=== PATIENT | female | born 1975 | race Caucasian/White ===

== ENCOUNTER 2016-09-17 02:09 | Emergency (ER) | payer OTHER ==
--- NOTE | 2016-09-17 03:26 | RADIOLOGY REPORT ---
XR CHEST RADIOGRAPH 2 views - PA and lateral CLINICAL INFORMATION: Lower back pain, syncope. COMPARISON: None. FINDINGS: Lungs are well inflated. There is no consolidation, pneumothorax, or displaced fracture. Co stophrenic angles are clear. Cardiomediastinal silhouette is normal in size. IMPRESSION: No radiographic evidence of acute cardiopulmonary abnormalities. Final Electronic Signature: This report was electronically signed by Adarsh Upton MD on 7 3:24 AM. [email or web address] /
[2016-09-17 03:38] LABS: A/G RATIO 1.2; ALBUMIN 4.1 g/dL (3.5-5.0); ALKALINE PHOSPHATASE 75 U/L (38-126); ALT 34 U/L (9-52); AST 26 U/L (14-36); BILIRUBIN, TOTAL 0.7 mg/dL (0.2-1.3); BLOOD UREA NITROGEN 11 mg/dL (7-17); CALCIUM 8.9 mg/dL (8.4-10.2); CHLORIDE 103 mmol/L (98-107); CREATININE 0.6 mg/dL (0.5-1.0); EST GLOMERULAR FILTRATION RATE > 60 mL/min; GLUCOSE 90 mg/dL (70-100); MAGNESIUM 1.5 mg/dL (1.6-2.3); SODIUM 137 mmol/L (137-145); TOTAL PROTEIN 7.4 g/dL (6.3-8.2)
[2016-09-17] MEDS ORDERED: ACETAMINOPHEN 325 MG TABLET PO ONE (03:58)
--- NOTE | 2016-09-17 04:15 | ER NURSING DOCUMENTATION ---
Nurse's Notes [facility] Name:Carolann Mcintosh Age:41 yrs Sex:Female :1975 Arrival Date:09/17/2016 Time:02:09 Bed4 Private MD: Diagnosis:Syncope;Acute Low Back Pain Presentation: 09/17 02:13 Acuity: THADDEUS 3 mk2 02:13 Presenting complaint: Patient states: Pt states she arrived from [place] today and mk2 hiked, felt funny before bed and took ibuprofen for her chronic lower back pain. Pt woke to use the restroom and on the way back to the bed had a syncopal episode. Pt denies injury and no injuries noted upon initial exam. Pain in lower back and sciatic pain. Transition of care: Home. Care prior to arrival: IV initiated. gauge and site 20G left hand. 02:13 Method Of Arrival: EMS: 410 mk2 02:19 Care prior to arrival: IV Fluids given by EMS NS 1000 ml Labs BS 100. mk2 02:20 Notified ED Physician of Dr. Jovel notified. mk2 Triage Assessment: 02:21 General: Appears in no apparent distress, Behavior is cooperative, pleasant. Pain: mk2 Complains of pain in lumbar area Pain currently is 6 out of 10 on a pain scale. Neuro: Level of Consciousness is awake, alert, Oriented to person, place, time, event, Speech is normal, Facial symmetry appears normal, Pupils are PERRLA, Denies paresthesias. Cardiovascular: Heart tones S1 S2 pulses are equal, regular and strong. Respiratory: Breath sounds are clear bilaterally. GI: No deficits noted. Denies constipation, cramping, diarrhea, nausea, vomiting. : No deficits noted. Denies burning with urination, inability to void. Derm: No deficits noted. Musculoskeletal: Reports pain in lumbar area, left low back and right low back. Historical: - Allergies: No known drug Allergies; - Home Meds: 1. None 2. scopolamine transdermal for motion sickness - PMHx: svt; ablation; - PSHx: TUBAL LIGATION; - Tetanus: < 10 years. - Ebola Screening: : Patient negative for fever greater than or equal to 101.5 degrees Fahrenheit, and additional compatible Ebola Virus Disease symptoms. Patient denies exposure to infectious person. Patient denies travel to an Ebola-affected area in the 21 days before illness onset. No symptoms or risks identified at this time. . - Immunization history: Flu Vaccine None. - Social history: Smoking status: Patient states was never smoker of tobacco. Patient uses alcohol occasionally. Patient/guardian denies using street drugs. Screenin:27 Infectious Disease Risk None. Abuse screen: Denies threats or abuse. Nutritional mk2 screening: No deficits noted. Assessment: 02:27 See Triage Assessment done by same RN. mk2 Vital Signs: 02:27 BP 91 / 56; Pulse 70; Resp 15; Temp 98.1; Pulse Ox 97% on R/A; Weight 66.68 kg; Height mk2 5 ft. 3 in. (160.02 cm); Pain 6/10; 03:10 BP 108 / 64 (auto/); mk2 03:14 Pulse 74 MON; Resp 17; Pulse Ox 97% ; mk2 04:09 BP 110 / 62; Pulse 70; Resp 15; Pulse Ox 96% on R/A; Pain 6/10; mk2 02:27 Body Mass Index 26.04 (66.68 kg, 160.02 cm) 2 ED Course: 02:11 Patient arrived in ED. ma1 02:13 Jasmyn Vick, RN is Primary Nurse. mk2 02:13 Triage completed. mk2 02:27 Arm band placed on Bed in low position Call Light in Reach Gowned HOB Elevated Side mk2 rails up x2. 02:38 Valuables Remains with patient. patient monitor on. Pulse ox on. NIBP on. Warm blanket mk2 given. 02:42 Labs drawn. (by ED staff). Urine collected. Clean catch specimen. mk2 02:45 Morro Jovel MD is Attending Physician. tl1 02:57 CXR 2V [id number] In Process Unspecified. EDMS 03:[address] Jovel notified. Notified ddimer 678 read back to [facility]. mk2 03:08 Patient moved to radiology. rosalva 03:08 Patient moved back from radiology. rosalva 03:08 CXR 2V [id number] Sent. rosalva 03:16 CXR 2V [id number] In Process Unspecified. EDMS 03:18 Labs drawn. By Lab Staff. mk2 03:27 PO fluids given. mk2 03:34 EKG attached mk2 03:[address] Jovel notified. Notified repeat d dimer 827. mk2 Administered Medications: 04:00 Drug: Tylenol 975 mg; Route: PO; mk2 04:11 Follow up: Response: No adverse reaction mk2 Intake: 04:14 PO: 16ml; IV: 1000ml; Total: 1016ml. mk2 Output: 04:14 Urine: 500ml; Total: 500ml. mk2 Outcome: 03:28 Discharge ordered by . rosy 04:09 Discharged to home ambulatory. mk2 04:09 Condition: improved 04:09 Discharge instructions given to patient, Instructed on discharge instructions, follow up and referral plans. medication usage, no drinking with medication, no driving heavy equipment. 04:09 Prescriptions given X 2. 04:09 IV D/Cholo 04:14 Patient left the ED. mk2 Signatures: Dispatcher [employer] EDMS Esther Garcia Meg, RN RN oral2 Morro Jovel MD MD tl1 Diane Hong
--- NOTE | 2016-09-17 04:15 | ER PHYSICIAN DOCUMENTATION ---
Physician Documentation [facility] Name:Carolann Mcintosh Age:41 yrs Sex:Female :1975 Arrival Date:09/17/2016 Time:02:09 Bed4 Private MD: Morro Ortez Disposition: 09/17 15:06 Chart complete. tl1 Disposition: 09/17/16 03:28 Discharged to Home/Self Care. Impression: Syncope, Acute Low Back Pain. - Condition is Good. - Discharge Instructions: BACK PAIN (Acute or Chronic), SYNCOPE, Unk Cause, SYNCOPE, Vasovagal. - Prescriptions for Jarratt 5- 325 mg Oral - take 1 tablet by ORAL route every 6 hours As needed; 12 tablet. Zofran 4 mg Oral Tablet - take 1-2 tablet by ORAL route every 4-6 hours As needed; 10 tablet. - Medical Reconciliation form form. - Follow up: Private Physician; When: 10 - 14 days; Reason: Recheck today's complaints. - Problem is new. - Symptoms are resolved. HPI: 02:40 This 41 yrs old Female presents to ER via EMS with complaints of General tl1 Weakness and syncope. 02:40 The patient has experienced syncope. Onset: The symptom(s)/episode began/occurred tl1 suddenly, just prior to arrival, this morning. Duration: This was a single episode. She was fine when she left [facility] this morning, and flew to [place]. After arriving, she did hike, and wasn't feeling up to par. Tonight, she awakened to use the bathroom and had a syncopal episode after standig up and walking back to bed. She did not hit her head. No incontinence. No heart problems other than an ablation for SVT.. Historical: - Allergies: No known drug Allergies; - Home Meds: 1. None 2. scopolamine transdermal for motion sickness - PMHx: svt; ablation; - PSHx: TUBAL LIGATION; - Tetanus: < 10 years. - Ebola Screening: : Patient negative for fever greater than or equal to 101.5 degrees Fahrenheit, and additional compatible Ebola Virus Disease symptoms. Patient denies exposure to infectious person. Patient denies travel to an Ebola-affected area in the 21 days before illness onset. No symptoms or risks identified at this time. . - Immunization history: Flu Vaccine None. - Social history: Smoking status: Patient states was never smoker of tobacco. Patient uses alcohol occasionally. Patient/guardian denies using street drugs. ROS: 03:20 Constitutional: Negative for body aches, chills, fatigue, fever, malaise. tl1 03:20 Eyes: Negative for visual disturbance. 03:20 Cardiovascular: Negative for chest pain, edema, orthopnea, palpitations, paroxysmal nocturnal dyspnea, acute changes. 03:20 Respiratory: Negative for cough, dyspnea on exertion, hemoptysis, orthopnea, pleurisy, shortness of breath, sputum production, wheezing. 03:20 Abdomen/GI: Negative for abdominal pain, nausea, vomiting, diarrhea, constipation, hematemesis, black/tarry stool, rectal bleeding. 03:20 Back: Positive for pain with movement. 03:20 : Negative for urinary symptoms. 03:20 MS/extremity: Negative for acute changes. 03:20 Skin: Negative for acute changes. 03:20 Neuro: Positive for dizziness, headache, syncope. 03:20 All other systems are negative. Exam: 03:21 Constitutional: This is a well developed, well nourished patient who is awake, alert, tl1 and in no acute distress. Head/Face: Normocephalic, atraumatic. Eyes: Pupils equal round and reactive to light, extra-ocular motions intact. Lids and lashes normal. Conjunctiva and sclera are non-icteric and not injected. Cornea within normal limits. Periorbital areas with no swelling, redness, or edema. ENT: Nares patent. No nasal discharge, no septal abnormalities noted. Tympanic membranes are normal and external auditory canals are clear. Oropharynx with no redness, swelling, or masses, exudates, or evidence of obstruction, uvula midline. Mucous membranes moist. Neck: Trachea midline, no thyromegaly or masses palpated, and no cervical lymphadenopathy. Supple, full range of motion without nuchal rigidity, or vertebral point tenderness. No Meningismus. 03:21 Chest/axilla: Normal chest wall appearance and motion. Nontender with no deformity. tl1 No lesions are appreciated. 03:21 Cardiovascular: Rate: bradycardic, Rhythm: regular, Heart sounds: normal, Edema: is not appreciated, JVD: is not appreciated. 03:21 Respiratory: Respirations: normal, Breath sounds: are normal, no rales, rhonchi, no stridor, no wheezing. 03:21 Abdomen/GI: Inspection: abdomen appears normal, Palpation: abdomen is soft and non-tender. 03:21 Back: pain, that is moderate, CVA tenderness, is absent, vertebral tenderness, is appreciated at L3, L4 and L5, muscle spasm, is not present, Straight leg raises: right lower extremity does not illicit pain, left lower extremity does not illicit pain. 03:21 Musculoskeletal/extremity: Exam is negative for acute changes. 03:21 Skin: Exam negative for acute changes. 03:21 Neuro: grossly normal. Vital Signs: 02:27 BP 91 / 56; Pulse 70; Resp 15; Temp 98.1; Pulse Ox 97% on R/A; Weight 66.68 kg; Height mk2 5 ft. 3 in. (160.02 cm); Pain 6/10; 03:10 BP 108 / 64 (auto/); mk2 03:14 Pulse 74 MON; Resp 17; Pulse Ox 97% ; mk2 04:09 BP 110 / 62; Pulse 70; Resp 15; Pulse Ox 96% on R/A; Pain 6/10; mk2 02:27 Body Mass Index 26.04 (66.68 kg, 160.02 cm) mk2 MDM: 02:45 Patient medically screened. tl1 02:51 Differential Diagnosis: cardiac arrhythmia, cerebrovascular accident, drug effect, tl1 emotional response, GI bleed, idiopathic syncope, seizure, transient ischemic attack, vasovagal episode. Neurological re-evaluation: normal neurological exam including cranial nerves, orientation, mentation, motor and sensory exam, cerebellar testing, GCS normal, and normal gait. Data reviewed: vital signs, nurses notes, EMS record, lab test result(s), cardiac enzymes, CBC, electrolytes, hepatic panel, urinalysis, and as a result, I will discharge patient. Test interpretation: by ED physician or midlevel provider: plain radiologic studies, ECG. Counseling: I had a detailed discussion with the patient and/or guardian regarding: the historical points, exam findings, and any diagnostic results supporting the discharge/admit diagnosis, lab results, radiology results, the need for outpatient follow up, to return to the emergency department if symptoms worsen or persist or if there are any questions or concerns that arise at home. ECG:. 03:24 ED course: She received a liter of IV NS, and her scopolamine patch was removed, and tl1 she felt much better. I explained that her syncope was probably multifactorial and related to elevation, dehydration, the scopolomine, and perhaps some post-micturition vagal influence. She feels fine now and is otherwise healthy. I think that the chance of a malignant arrythmia, some cardiovascular catastrophe, or a PE IS very remote.. 03:34 EKG attached 2 09/17 03:09 Order name: BNP,NT-PRO; Complete Time: 15:07 EDMS 09/17 15:06 Interpretation: Normal: BNP,NT-PRO 43. tl1 09/17 03:40 Order name: COMPREHENSIVE METABOLIC PANEL; Complete Time: 15:07 EDMS 09/17 15:06 Interpretation: Normal: SODIUM 137; POTASSIUM 4.0; CHLORIDE 103; CARBON DIOXIDE 25; tl1 GLUCOSE 90; BLOOD UREA NITROGEN 11; CREATININE 0.6. 09/17 03:40 Order name: MAGNESIUM; Complete Time: 15:07 EDMS 09/17 15:06 Interpretation: Abnormal: MAGNESIUM 1.5. 1 09/17 03:41 Order name: DDIMER; Complete Time: 15:07 EDMS 09/17 15:07 Interpretation: Abnormal: DDIMER 827. 1 09/17 02:57 Order name: CXR 2V [id number] EDMS 09/17 03:28 Order name: CXR 2V [id number]; Complete Time: 03:30 EDMS 09/17 03:30 Interpretation: Normal per my read, and the radiologist's. 1 09/17 02:32 Order name: EKG - 12 Lead; Complete Time: 02:32 mk2 EC:12 Rate is 61 beats/min. Rhythm is regular, Normal Sinus Rhythm. QRS [place] is Normal. CO tl1 interval is normal at 129 msec. QRS interval is normal at 87 msec. QT interval is normal at 426 msec. No Q waves. T waves are Normal. No ST changes noted. Clinical impression: Normal ECG. Interpreted by me. Reviewed by me. Dispensed Medications: 04:00 Drug: Tylenol 975 mg; Route: PO; mk2 04:11 Follow up: Response: No adverse reaction 2 Signatures: Jasmyn Vick RN RN mk2 Becka, Morro, MD MD tl1
== END 2016-09-17 04:15 | disposition home or self-care (01) ==
LOC: ER 02:09
DX: R55 Syncope and collapse (principal); M54.5 Low back pain; R42 Dizziness and giddiness; R51 Headache; E86.0 Dehydration; R79.1 Abnormal coagulation profile
CPT/HCPCS: 71020; 80053; 83735; 83880; 85379; 99284; A0425; A0427